=== PATIENT | female | born 1975 | race Caucasian/White ===

== ENCOUNTER 2021-09-28 09:05 | Emergency (ER) | payer BC ==
--- NOTE | 2021-09-28 10:14 | CR ---
INDICATION: Dizzy. TECHNIQUE: Chest 1 view. COMPARISON: None. FINDINGS: No focal consolidation, pleural effusion, or pneumothorax. Normal heart size and pulmonary vascularity. Mild thoracolumbar curve. IMPRESSION: No acute cardiopulmonary findings. Dictated by Savannah Her MD @ 09/28/2021 10:13:01 AM (Electronically Signed)
[2021-09-28 10:19] LABS: BLOOD UREA NITROGEN,BUN 16 mg/dL (7.0-18.0); CARBON DIOXIDE,CO2 24.4 mmol/L (21.0-32.0); CHLORIDE,CL 104 mmol/L (98-107); GLUCOSE RANDOM 106 mg/dL (74-106); POTASSIUM,K 3.4 mmol/L (3.5-5.1); SODIUM,NA 139 mmol/L (136-145)
[2021-09-28] MEDS ORDERED: Potassium Chloride 10% 20 MEQ/15 ML Soln 30 ML UD Cup PO ONE (10:24)
--- NOTE | 2021-09-28 10:46 | EDM.PDOC ---
ED HPI GENERAL MEDICAL PROBLEM - General Chief Complaint: Cardiovascular Problem Stated Complaint: HEART PALPITATIONS DIZZY Time Seen by Provider: 09/28/21 09:11 - History of Present Illness INITIAL COMMENTS - FREE TEXT/NARRATIVE: CHIEF COMPLAINT(S): Palpitations HISTORY OF PRESENT ILLNESS: This is a 45-year-old woman without any significant past medical history who comes to the emergency department with a chief complaint of palpitations. The patient states that she presents to the emergency department for heart palpitations for the last week. She states that the palpitations happen immediately when she falls asleep and it feels like her heart stops for a bit and then starts bleeding again. She states that prior to this that usually happen in the daytime and then would go away however this is different. She states this is happened many times in the past and was told to reduce her caffeine which did work. This was approximately 10 years ago. She states that she did wear a Holter monitor which did not reveal any other abnormalities. She states that she has noticed that high carb foods can also trigger this. She recently also tested positive for COVID-19. She denies any lower extremity edema, shortness of breath, recent travel or surgery. She denies any chest pain. She denies any family history of sudden onset a young age. She denies any other symptoms other than palpitations. She states t hat she is currently asymptomatic REVIEW OF SYSTEMS: Constitutional: Denies fever, chills. Eyes: Denies eye pain Ears, Nose, Mouth, & Throat: Denies earache Cardiovascular: Positive for palpitations respiratory: Denies shortness of breath Gastrointestinal: Denies Nausea, vomiting, diarrhea, hematochezia. Genitourinary: Denies hematuria Skin:Denies a rash MSK: Denies joint pain Neurological: Denies blurred vision Psychiatric: Denies depression PAST MEDICAL HISTORY: As per history of present illness and as reviewed below otherwise noncontributory. SURGICAL HISTORY: As per history of present illness and as reviewed below otherwise noncontributory. SOCIAL HISTORY: As per history of present illness and as reviewed below otherwise noncontributory. FAMILY HISTORY: As per history of present illness and as reviewed below otherwise noncontributory. EXAMINATION OF ORGAN SYSTEMS/BODY AREAS: Constitutional: Blood pressure was 134/89, heart rate 85, respiratory 16 with an oxygen saturation 96% on room air. Temperature 36.5 General: Well-appearing woman who is in no acute distress Psychiatric: Appropriate mood and affect. Eyes: No scleral icterus or conjunctival erythema ENMT: Moist mucous membranes. No pharyngeal erythema Cardiovascular: Regular, rate, and rhythm. No gallops, murmurs, or rubs. Bilateral upper extremity pulses symmetric and intact. No peripheral edema. No JVD. Respiratory: Lungs clear to auscultation bilaterally. No wheezes, rales, or rhonchi. Gastrointestinal: Soft, non-tender, non-distended. Normoactive bowel sounds Genitourinary: No suprapubic tenderness Musculoskeletal: Normal range of motion. Skin: No lesions or abrasions. Neurological: Alert, GCS 15 MEDICAL DECISION MAKING AND COURSE IN THE ED WITH INTERPRETATION/REVIEW OF DIAGNOSTIC STUDIES: This is a 45-year-old woman with a past medical history of palpitations secondary to caffeine use as reported by the patient herself and tobacco use disorder who comes to the emergency department with palpitations upon sleeping who currently is asymptomatic with normal vital signs. At this time will obtain labs including a troponin to evaluate for ACS. Obtain a TSH to evaluate for hyperthyroid. Also obtain a chest x-ray and an EKG. EKG was obtained which not reveal any acute signs of ischemia or arrhythmia. DDx: Arrhythmia, tachycardia secondary to caffeine, ACS Laboratory: CBC is unremarkable. BMP reveals hypokalemia of 3.4 otherwise unremarkable. Troponin is negative. TSH is 5.7 free T4 is normal. The radiological images were viewed by myself along with reading the report from the radiologist. Chest x-ray does not reveal an acute cardiopulmonary process. During the entire department stay the patient did not have any episodes of palpitations and her cardiac monitoring did reveal sinus rhythm. At this time I do not believe any further work-up is indicated. We did contact respiratory therapy for placement of a Zio patch. I did discuss the importance of following up with cardiology and to return to the emergency department if she had any new or worsening symptoms. She was amenable to discharge at this time and had no further questions. DISPOSITION: The patient was discharged home in stable condition. The patient will follow up with cardiology in 2 weeks CONDITION: Fair PROCEDURES: None FINAL IMPRESSION(S)/DIAGNOSES: 1. Acute palpitations Rich Clarke M.D. - Related Data Allergies Allergy/AdvReac Type Severity Reaction Status Date / Time No Known Allergies Allergy Verified 09/28/21 09:10 Home Meds: Home Meds . [No Known Home Meds] 09/28/21 [History] Past Medical History - Past Health History Medical/Surgical History: Denies Medical/Surgical History - Infectious Disease History Infectious Disease History: Reports: C-Difficile, Novel Coronavirus Social & Family History - Family History Family Medical History: No Pertinent Family History - Caffeine Use Caffeine Use: Reports: Coffee - Recreational Drug Use Recreational Drug Use: No ED ROS GENERAL - Review of Systems Review Of Systems: See Below ED EXAM, GENERAL - Physical Exam Exam: See Below Course - Vital Signs Last Recorded V/S: Last Vital Signs Temp 36.5 C 09/28/21 09:05 Pulse 79 09/28/21 11:23 Resp 16 09/28/21 09:05 BP 120/81 09/28/21 11:23 Pulse Ox 96 09/28/21 11:23 - Orders/Labs/Meds Labs: Laboratory Tests 09/28/21 09/28/21 09/28/21 Range/Units 09:20 09:20 09:20 WBC 7.44 (4.0-11.0) K/uL RBC 4.53 (4.30-5.90) M/uL Hgb 13.0 (12.0-16.0) g/dL Hct 38.7 (36.0-46.0) % MCV 85.4 (80.0-98.0) fL MCH 28.7 (27.0-32.0) pg MCHC 33.6 (31.0-37.0) g/dL RDW Std Deviation 43.2 (28.0-62.0) fl RDW Coeff of Sarah 14 (11.0-15.0) % Plt Count 200 (150-400) K/uL MPV 11.30 (7.40-12.00) fL Neut % (Auto) 68.7 (48.0-80.0) % Lymph % (Auto) 22.3 (16.0-40.0) % Beckham % (Auto) 7.0 (0.0-15.0) % Eos % (Auto) 1.7 (0.0-7.0) % Baso % (Auto) 0.3 (0.0-1.5) % Neut # (Auto) 5.1 (1.4-5.7) K/uL Lymph # (Auto) 1.7 (0.6-2.4) K/uL Beckham # (Auto) 0.5 (0.0-0.8) K/uL Eos # (Auto) 0.1 (0.0-0.7) K/uL Baso # (Auto) 0.0 (0.0-0.1) K/uL Nucleated RBC % 0.0 /100WBC Nucleated RBCs # 0 K/uL Sodium 139 (136-145) mmol/L Potassium 3.4 L (3.5-5.1) mmol/L Chloride 104 (98-107) mmol/L Carbon Dioxide 24.4 (21.0-32.0) mmol/L BUN 16 (7.0-18.0) mg/dL Creatinine 0.9 (0.6-1.0) mg/dL Est Cr Clr Drug Dosing 63.09 mL/min Estimated GFR (MDRD) > 60.0 ml/min Glucose 106 (74-106) mg/dL Calcium 8.9 (8.5-10.1) mg/dL Magnesium 2.0 (1.8-2.4) mg/dL Troponin I < 0.050 (0.000-0.056) ng/mL Free T4 0.95 (0.76-1.46) ng/dL TSH, Ultra Sensitive 5.70 H (0.36-3.74) uIU/mL Meds: Medications Discontinued Medications Generic Name Dose Route Start Last Admin Trade Name Freq PRN Reason Stop Dose Admin Ondansetron HCl 4 mg 09/28/21 11:00 09/28/21 11:03 Ondansetron 4 Mg Tab.Dis PO 09/28/21 11:01 4 mg ONETIME ONE Administration Potassium Chloride 40 meq 09/28/21 10:24 09/28/21 10:56 Potassium Chloride 10% 20 Meq/15 Ml Soln 30 Ml Ud Cup PO 09/28/21 10:25 40 meq ONETIME ONE Administration Departure - Departure Time of Disposition: 11:13 Disposition: Home, Self-Care 01 Condition: Fair Clinical Impression: Palpitations Instructions: Palpitations Referrals: PCP,None [Primary Care Provider] - Jaguar Sherman MD [Physician] - Forms: ED Department Discharge Additional Instructions: You were evaluated today on an emergent basis. At this time the rhythm strip of your heart was normal and all of your labs other than some mildly decreased potassium were normal. At this time it is uncertain as to what is causing your palpitations however I recommend that you refrain from caffeine use and continue to wear the Zio patch. I would like you to follow-up with cardiology to interpret these findings and if you have any worsening symptoms that become more persistent you develop chest pain shortness of breath or you pass out I would like you to return to the emergency department. Please follow-up with your primary care physician in 3 to 5 days. [facility] [address] [place] [id number] [facility] [address] [place] [id number] The patient is informed of any results of their evaluation and diagnostic workup and all questions are answered. They are given discharge instructions and return precautions. The patient is stable for discharge. The patient states they understand and agree with the plan and that they will return if their symptoms get worse or if they have any new concerns. The following information is given to patients seen in the emergency department who are being discharged to home. This information is to outline your options for follow-up care. We provide all patients seen in our emergency department with a follow-up referral. The need for follow-up, as well as the timing and circumstances, are variable depending upon the specifics of your emergency department visit. If you don't have a primary care physician on staff, we will provide you with a referral. We always advise you to contact your personal physician following an emergency department visit to inform them of the circumstance of the visit and for follow-up with them and/or the need for any referrals to a consulting specialist. The emergency department will also refer you to a specialist when appropriate. This referral assures that you have the opportunity for follow-up care with a specialist. All of these measure are taken in an effort to provide you with optimal care, which includes your follow-up. Under all circumstances we always encourage you to contact your private physician who remains a resource for coordinating your care. When calling for follow-up care, please make the office aware that this follow-up is from your recent emergency room visit. If for any reason you are refused follow-up, please contact the [facility] Emergency Department at and asked to speak to the emergency department charge nurse. Sepsis Event Note (ED) - Evaluation Sepsis Screening Result: No Definite Risk
--- NOTE | 2021-09-28 10:47 | PCM.EKG ---
#1 Interpretation EKG Date: 09/28/21 Time: 09:07 Rhythm: NSR Rate (Beats/Min): 89 Arion: Normal P-Wave: Present QRS: Normal ST-T: Normal QT: Normal Comparison: NA - No Prior EKG EKG Interpretation Comments: Sinus Rhythm
[2021-09-28] MEDS ORDERED: Ondansetron 4 MG Tab.DIS PO ONE (11:00)
== END 2021-09-28 11:23 | disposition home or self-care (01) ==
LOC: MW.ED 09:05
DX: R00.2 Palpitations (principal)
CPT/HCPCS: 36415; 71045; 80048; 83735; 84439; 84443; 84484; 85025; 93005; 99285; A9270